=== PATIENT | female | born 1955 | race Hispanic/Latino ===

== ENCOUNTER → 2020-06-30 | Outpatient (CLI) | payer BC ==
[~2020-06-30] MED LIST: ASPI-1443 PO; BRIM15OS OS; BRINOS OS; CARV12.511 PO; CLON0.1T PO; GARL1000 PO; LATA7.5D OS; LEVO55OS OS; MAGN500C15 PO; METF500S7 PO; VALS1TAB80 PO
== END | disposition home or self-care (01) ==
LOC: SHCH 08:22
PROVIDERS: ATTEND Internal Medicine Cardiovascular Disease
DX: R55 Syncope and collapse (principal); I10 Essential (primary) hypertension; E11.9 Type 2 diabetes mellitus without complications
CPT/HCPCS: 93306; 93356

== ENCOUNTER 2020-07-04 15:35 | Inpatient (IN) | payer BC ==
[~2020-07-04] VITALS: Ht 160 cm; Wt 91.6 kg
[2020-07-04 16:14] LABS: APPEARANCE,URINE Cloudy (CLEAR); BILIRUBIN,URINE Negative (NEGATIVE); COLOR,URINE Yellow (YELLOW); GLUCOSE, URINE (UA) 250 mg/dL (NEGATIVE); KETONES,URINE Negative (NEGATIVE); LEUKOCYTE ESTERASE ,URINE Trace (NEGATIVE); NITRATE,URINE Negative (NEGATIVE); OCCULT BLOOD,URINE Moderate (NEGATIVE); PROTEIN,URINE POS 1+ mg/dL (NEGATIVE); UROBILINOGEN,URINE 0.2 mg/dL (0.2-1.0)
[2020-07-04 16:28] LABS: BACTERIA,URINE Few /HPF (None Seen); MUCUS,URINE Few LPF (None Seen); SQUAMOUS EPITHELIAL CELL,UR Few /HPF (0-2)
[2020-07-04] MEDS ORDERED: NICARDIPINE HCL 50 MG in SODIUM CHLORIDE 0.9% 230 ML IV SCH (16:30)
[2020-07-04] MEDS ORDERED: PHARMACY COMMUNICATION MISC SCH (16:30)
[2020-07-04] MEDS ORDERED: LOSARTAN 100 MG TABLET PO SCH (16:31)
[2020-07-04 16:32] LABS: BASOPHILS % (AUTO) 0.5 % (0.0-5.0); EOSINOPHILS % (AUTO) 0.8 % (0.0-8.0); HEMATOCRIT 42.5 % (36-48); LYMPHOCYTES % (AUTO) 28.6 % (21.0-51.0); MEAN CORPUSCULAR HEMOGLOBIN 31.6 pg (27.0-33.0); MEAN CORPUSCULAR HGB CONC 35.5 g/dL (32.0-36.0); MEAN CORPUSCULAR VOLUME 88.9 fL (79-99); MONOCYTES % (AUTO) 3.8 % (3.0-13.0); NEUTROPHILS % (AUTO) 65.8 % (40.0-77.0); PLATELET COUNT (AUTO) 319 K/uL (130-400); RED BLOOD CELL COUNT(AUTO) 4.78 MIL/uL (4.00-5.50); RED CELL DISTRIBUTION WIDTH 12.1 % (11.0-15.5); WHITE BLOOD COUNT (AUTO) 12.9 K/uL (4.8-10.8)
[2020-07-04] MEDS ORDERED: HYDROCHLOROTHIAZIDE 25 MG TABLET PO SCH (16:32)
[2020-07-04] MEDS ORDERED: NICARDIPINE HCL 25 MG/10 ML ML IV ONE ×2 (16:34→16:44)
[2020-07-04 16:44] LABS: CREATININE 0.9 mg/dL (0.5-1.5); POTASSIUM 3.1 mmol/L (3.5-5.1)
[2020-07-04 16:46] LABS: INR 1.03 (0.85-1.15); PROTHROMBIN TIME 11.2 SEC (9.6-11.6)
[2020-07-04 16:47] LABS: PARTIAL THROMBOPLASTIN TIME 25.2 SEC (26.3-35.5)
[2020-07-04 16:51] LABS: ALBUMIN 3.8 g/dL (3.5-5.0); BILIRUBIN,TOTAL 0.9 mg/dL (0.2-1.0); TOTAL PROTEIN, SERUM 8.5 g/dL (6.0-8.3)
[2020-07-04 16:54] LABS: HEMOGLOBIN A1C 8.2 % (4.0-6.0)
[2020-07-04 17:00] LABS: THYROID STIMULATING HORMONE 1.24 uIU/mL (0.36-3.74)
[2020-07-04 17:01] LABS: AMPHET/METH SCREEN,URINE NEGATIVE (NEGATIVE); BARBITURATE SCREEN, URINE NEGATIVE (NEGATIVE); BENZODIAZEPINES SCREEN,URINE NEGATIVE (NEGATIVE); CANNABINOID SCREEN,URINE NEGATIVE (NEGATIVE); COCAINE SCREEN,URINE NEGATIVE (NEGATIVE); OPIATE SCREEN,URINE NEGATIVE (NEGATIVE); PHENCYCLIDINE SCREEN,URINE NEGATIVE (NEGATIVE)
[2020-07-04 17:01] LABS: B-TYPE NATRIURETIC PEPTIDE 76 pg/mL (0-100)
[2020-07-04] MEDS ORDERED: POTASSIUM CHLORIDE 20 MEQ ERTAB PO PRN (17:30)
[2020-07-04] MEDS ORDERED: POTASSIUM CHLORIDE 20MEQ/100ML 100 ML IV PRN (17:30)
[2020-07-04 18:34] VITALS: BP 185/101
[2020-07-04] MEDS ORDERED: BRIM15OS OS (18:43)
[2020-07-04] MEDS ORDERED: BRINOS OS (18:43)
[2020-07-04] MEDS ORDERED: LEVO55OS OS (18:43)
[2020-07-04] MEDS ORDERED: LATA7.5D OS (18:43)
[2020-07-04] MEDS ORDERED: CLON0.1T PO (18:49)
[2020-07-04] MEDS ORDERED: MAGN500C15 PO (18:49)
[2020-07-04] MEDS ORDERED: METF500S7 PO (18:49)
[2020-07-04] MEDS ORDERED: ASPI-1443 PO (18:49)
[2020-07-04] MEDS ORDERED: VALS1TAB80 PO (18:49)
[2020-07-04] MEDS ORDERED: CARV12.511 PO (18:49)
[2020-07-04] MEDS ORDERED: GARL1000 PO (18:49)
[2020-07-04 20:15] VITALS: BP 139/71
[2020-07-04 21:00] VITALS: BP 143/72
[2020-07-04] MEDS: LEVOBUNOLOL HCL OS SCH (21:00)
[2020-07-04] MEDS ORDERED: LEVOBUNOLOL HCL OS SCH (21:00)
[2020-07-04] MEDS: LATANOPROST 2.5 ML DROPS OS SCH (21:00)
[2020-07-04] MEDS: BRIMONIDINE TARTRATE 0.2% 5 ML BOTTLE OS SCH (21:00)
[2020-07-04] MEDS ORDERED: BRIMONIDINE TARTRATE OS SCH (21:00)
[2020-07-04] MEDS ORDERED: NON-FORMULARY MEDICATION 1 EACH (Latanoprost/Pf (Latanoprost 0.005% Eye Drop) 1 DROP) OS SCH (21:00)
[2020-07-04] MEDS: POTASSIUM CHLORIDE 10% ELIXIR 20 MEQ/15 ML UDCUP PO PRN ×2 (21:20→23:00)
[2020-07-04] MEDS: FAMOTIDINE 20MG TAB 20 MG TAB PO SCH (21:20)
[2020-07-04] MEDS: CARVEDILOL 12.5 MG TABLET PO SCH (21:20)
[2020-07-04 22:00] VITALS: BP 128/74
[2020-07-05] VITALS (21 sets, daily range): BP systolic 117–180; BP diastolic 51–95
[2020-07-05] MEDS: POTASSIUM CHLORIDE 10% ELIXIR 20 MEQ/15 ML UDCUP PO PRN
[2020-07-05 05:41] LABS: BASOPHILS % (AUTO) 0.5 % (0.0-5.0); EOSINOPHILS % (AUTO) 1.2 % (0.0-8.0); HEMATOCRIT 41.9 % (36-48); LYMPHOCYTES % (AUTO) 33.6 % (21.0-51.0); MEAN CORPUSCULAR HEMOGLOBIN 30.5 pg (27.0-33.0); MEAN CORPUSCULAR HGB CONC 34.1 g/dL (32.0-36.0); MEAN CORPUSCULAR VOLUME 89.3 fL (79-99); NEUTROPHILS % (AUTO) 58.4 % (40.0-77.0); PLATELET COUNT (AUTO) 295 K/uL (130-400); RED BLOOD CELL COUNT(AUTO) 4.69 MIL/uL (4.00-5.50); RED CELL DISTRIBUTION WIDTH 12.4 % (11.0-15.5); WHITE BLOOD COUNT (AUTO) 10.9 K/uL (4.8-10.8)
[2020-07-05 05:57] LABS: CREATININE 0.7 mg/dL (0.5-1.5); MAGNESIUM 1.8 mg/dL (1.80-2.40); POTASSIUM 3.3 mmol/L (3.5-5.1)
[2020-07-05] MEDS: INSULIN HUMULIN R 100 UNIT/ML 3ML SQ SCH ×4 (07:30→22:12)
[2020-07-05] MEDS: CARVEDILOL 12.5 MG TABLET PO SCH ×2 (08:50→20:19)
[2020-07-05] MEDS: LOSARTAN 100 MG TABLET PO SCH (08:52)
[2020-07-05] MEDS: FAMOTIDINE 20MG TAB 20 MG TAB PO SCH ×2 (08:52→22:11)
[2020-07-05] MEDS: LEVOBUNOLOL HCL OS SCH ×2 (08:53→21:00)
[2020-07-05] MEDS: ASPIRIN 81 MG EC TAB PO SCH (08:54)
[2020-07-05] MEDS ORDERED: MAGNESIUM OXIDE 500 MG PO SCH (09:00)
[2020-07-05] MEDS ORDERED: HYDROCHLOROTHIAZIDE 25 MG TABLET PO SCH (09:00)
[2020-07-05] MEDS ORDERED: NON-FORMULARY MEDICATION 1 EACH (Magnesium Oxide (Magnesium) 500 MG) PO SCH (09:00)
[2020-07-05] MEDS ORDERED: POTASSIUM CHLORIDE 20 MEQ ERTAB PO SCH (09:30)
[2020-07-05] MEDS: MAGNESIUM OXIDE 400 MG TABLET PO SCH (09:39)
[2020-07-05] MEDS: BRIMONIDINE TARTRATE 0.2% 5 ML BOTTLE OS SCH ×2 (09:56→21:00)
[2020-07-05] MEDS ORDERED: SODIUM BICARB 50MEQ 50ML VIAL 50 ML ONE (17:05)
[2020-07-05] MEDS ORDERED: IOHEXOL 350 MG/ML 100ML INFUS..BTL IV ONE (17:06)
[2020-07-05] MEDS ORDERED: FENTANYL CITRATE PF 50 MCG/1 ML 2ML VIAL ONE (17:06)
[2020-07-05] MEDS ORDERED: NITROGLYCERIN 2 MG/VIAL VIAL IV ONE (17:06)
[2020-07-05] MEDS ORDERED: LIDOCAINE HCL 2% 20ML ONE (17:06)
[2020-07-05] MEDS ORDERED: BIVALIRUDIN 250 MG/VIAL IV ONE (17:06)
[2020-07-05] MEDS ORDERED: MIDAZOLAM HCL 1 MG/ML 2ML VIAL ONE (17:06)
[2020-07-05] MEDS ORDERED: LABETALOL HCL 5 MG/ML 20ML VIAL IV ONE (17:49)
[2020-07-05] MEDS ORDERED: IOHEXOL-350 50ML VIAL IV ONE (17:54)
[2020-07-05] MEDS ORDERED: ENALAPRILAT DIHYDRATE 1.25 MG/ML 2ML VIAL IVP ONE ×2 (17:58→18:09)
[2020-07-05] MEDS ORDERED: SODIUM CHLORIDE 0.9% 1000ML 1,000 ML IV SCH (18:15)
[2020-07-05] MEDS ORDERED: AMLODIPINE BESYLATE 5 MG TAB PO SCH (19:45)
[2020-07-05] MEDS: LATANOPROST 2.5 ML DROPS OS SCH (21:00)
[2020-07-06] VITALS (24 sets, daily range): BP systolic 94–163; BP diastolic 45–90
[2020-07-06 04:25] LABS: HEMATOCRIT 39.4 % (36-48); MEAN CORPUSCULAR HEMOGLOBIN 30.2 pg (27.0-33.0); MEAN CORPUSCULAR VOLUME 91.4 fL (79-99); RED BLOOD CELL COUNT(AUTO) 4.31 MIL/uL (4.00-5.50); RED CELL DISTRIBUTION WIDTH 12.4 % (11.0-15.5); WHITE BLOOD COUNT (AUTO) 10.8 K/uL (4.8-10.8)
[2020-07-06 04:36] LABS: CREATININE 0.8 mg/dL (0.5-1.5); POTASSIUM 3.7 mmol/L (3.5-5.1)
[2020-07-06] MEDS ORDERED: METOPROLOL TARTRATE 1 MG/ML 5ML VIAL IV PRN (04:45)
[2020-07-06] MEDS: AMLODIPINE BESYLATE 5 MG TAB PO SCH ×2 (07:28→09:06)
[2020-07-06] MEDS: FAMOTIDINE 20MG TAB 20 MG TAB PO SCH ×2 (09:06→21:03)
[2020-07-06] MEDS: HYDROCHLOROTHIAZIDE 25 MG TABLET PO SCH (09:06)
[2020-07-06] MEDS: LOSARTAN 100 MG TABLET PO SCH (09:06)
[2020-07-06] MEDS: ASPIRIN 81 MG EC TAB PO SCH (09:07)
[2020-07-06] MEDS: LEVOBUNOLOL HCL OS SCH ×2 (09:10→21:04)
[2020-07-06] MEDS: BRIMONIDINE TARTRATE 0.2% 5 ML BOTTLE OS SCH ×2 (09:10→21:04)
[2020-07-06] MEDS: INSULIN HUMULIN R 100 UNIT/ML 3ML SQ SCH ×4 (09:28→20:58)
[2020-07-06] MEDS: MAGNESIUM OXIDE 400 MG TABLET PO SCH (10:31)
[2020-07-06] MEDS: AMILORIDE HCL 5 MG TABLET PO SCH (10:33)
[2020-07-06] MEDS: LATANOPROST 2.5 ML DROPS OS SCH (21:03)
[2020-07-07] VITALS (23 sets, daily range): BP systolic 111–184; BP diastolic 56–96
[2020-07-07 06:03] LABS: BASOPHILS % (AUTO) 0.3 % (0.0-5.0); EOSINOPHILS % (AUTO) 2.3 % (0.0-8.0); HEMATOCRIT 39.6 % (36-48); LYMPHOCYTES % (AUTO) 31.5 % (21.0-51.0); MEAN CORPUSCULAR HEMOGLOBIN 30.8 pg (27.0-33.0); MEAN CORPUSCULAR HGB CONC 34.1 g/dL (32.0-36.0); MEAN CORPUSCULAR VOLUME 90.4 fL (79-99); MONOCYTES % (AUTO) 6.7 % (3.0-13.0); NEUTROPHILS % (AUTO) 58.9 % (40.0-77.0); PLATELET COUNT (AUTO) 255 K/uL (130-400); RED BLOOD CELL COUNT(AUTO) 4.38 MIL/uL (4.00-5.50); RED CELL DISTRIBUTION WIDTH 12.4 % (11.0-15.5); WHITE BLOOD COUNT (AUTO) 11.5 K/uL (4.8-10.8)
[2020-07-07 06:13] LABS: POTASSIUM 3.3 mmol/L (3.5-5.1)
[2020-07-07] MEDS: INSULIN HUMULIN R 100 UNIT/ML 3ML SQ SCH ×4 (07:20→20:29)
[2020-07-07] MEDS ORDERED: POTASSIUM CHLORIDE 20 MEQ ERTAB PO SCH (08:30)
[2020-07-07] MEDS: ASPIRIN 81 MG EC TAB PO SCH (08:43)
[2020-07-07] MEDS: FAMOTIDINE 20MG TAB 20 MG TAB PO SCH ×2 (08:43→20:28)
[2020-07-07] MEDS: HYDROCHLOROTHIAZIDE 25 MG TABLET PO SCH (08:43)
[2020-07-07] MEDS: LOSARTAN 100 MG TABLET PO SCH (08:43)
[2020-07-07] MEDS: AMLODIPINE BESYLATE 5 MG TAB PO SCH (08:43)
[2020-07-07] MEDS: AMILORIDE HCL 5 MG TABLET PO SCH (08:43)
[2020-07-07] MEDS: BRIMONIDINE TARTRATE 0.2% 5 ML BOTTLE OS SCH ×2 (08:44→20:28)
[2020-07-07] MEDS ORDERED: CARVEDILOL 12.5 MG TABLET PO SCH ×2 (09:00)
[2020-07-07] MEDS ORDERED: CARVEDILOL 12.5 MG TABLET PO ONE (09:10)
[2020-07-07] MEDS: LEVOBUNOLOL HCL OS SCH ×2 (09:12→20:28)
[2020-07-07] MEDS: MAGNESIUM OXIDE 400 MG TABLET PO SCH (09:14)
[2020-07-07] MEDS ORDERED: AMLODIPINE BESYLATE 5 MG TAB PO SCH (09:30)
[2020-07-07] MEDS ORDERED: AMLODIPINE BESYLATE 5 MG TAB ONE (09:31)
[2020-07-07] MEDS: LATANOPROST 2.5 ML DROPS OS SCH (20:28)
[2020-07-08] VITALS (15 sets, daily range): BP systolic 120–158; BP diastolic 45–75
[2020-07-08 06:04] LABS: BASOPHILS % (AUTO) 0.3 % (0.0-5.0); EOSINOPHILS % (AUTO) 2.7 % (0.0-8.0); LYMPHOCYTES % (AUTO) 33.1 % (21.0-51.0); MEAN CORPUSCULAR HEMOGLOBIN 30.4 pg (27.0-33.0); MEAN CORPUSCULAR HGB CONC 33.2 g/dL (32.0-36.0); MEAN CORPUSCULAR VOLUME 91.7 fL (79-99); NEUTROPHILS % (AUTO) 56.5 % (40.0-77.0); PLATELET COUNT (AUTO) 269 K/uL (130-400); RED BLOOD CELL COUNT(AUTO) 4.47 MIL/uL (4.00-5.50); RED CELL DISTRIBUTION WIDTH 12.4 % (11.0-15.5); WHITE BLOOD COUNT (AUTO) 10.7 K/uL (4.8-10.8)
[2020-07-08 06:15] LABS: CREATININE 0.9 mg/dL (0.5-1.5); MAGNESIUM 1.9 mg/dL (1.80-2.40); POTASSIUM 3.9 mmol/L (3.5-5.1)
[2020-07-08] MEDS ORDERED: LOSARTAN 100 MG TABLET PO SCH (07:00)
[2020-07-08] MEDS ORDERED: AMLODIPINE BESYLATE 5 MG TAB PO SCH (07:00)
[2020-07-08] MEDS ORDERED: HYDROCHLOROTHIAZIDE 25 MG TABLET PO SCH (07:00)
[2020-07-08] MEDS: INSULIN HUMULIN R 100 UNIT/ML 3ML SQ SCH ×2 (07:30→12:18)
[2020-07-08] MEDS ORDERED: AMILORIDE HCL 5 MG TABLET PO SCH (09:00)
[2020-07-08] MEDS: BRIMONIDINE TARTRATE 0.2% 5 ML BOTTLE OS SCH (09:07)
[2020-07-08] MEDS: LEVOBUNOLOL HCL OS SCH (09:07)
[2020-07-08] MEDS: ASPIRIN 81 MG EC TAB PO SCH (09:13)
[2020-07-08] MEDS: MAGNESIUM OXIDE 400 MG TABLET PO SCH (09:13)
[2020-07-08] MEDS: FAMOTIDINE 20MG TAB 20 MG TAB PO SCH (09:14)
[2020-07-08] MEDS ORDERED: HYDR25TA PO (13:53)
[2020-07-08] MEDS ORDERED: AMLO-258 PO (13:53)
[2020-07-08] MEDS ORDERED: LOSA100T2 PO (13:53)
[2020-07-08] MEDS ORDERED: AMIL5TAB8 PO (13:53)
== END 2020-07-08 17:18 | disposition home or self-care (01) | DRG 287 ==
LOC: EDH 15:35 → EDHIP 15:36 → 2DH 18:15
PROVIDERS: ADMIT Internal Medicine; ATTEND Internal Medicine
PROC: 4A023N7 Measurement of Cardiac Sampling and Pressure, Left Heart, Percutaneous Approach (ICD-10-PCS; principal; 2020-07-05)
PROC: B2111ZZ Fluoroscopy of Multiple Coronary Arteries using Low Osmolar Contrast (ICD-10-PCS; 2020-07-05)
PROC: B2151ZZ Fluoroscopy of Left Heart using Low Osmolar Contrast (ICD-10-PCS; 2020-07-05)
PROC: B4181ZZ Fluoroscopy of Bilateral Renal Arteries using Low Osmolar Contrast (ICD-10-PCS; 2020-07-05)
DX: I16.9 Hypertensive crisis, unspecified (principal); I10 Essential (primary) hypertension; E11.65 Type 2 diabetes mellitus with hyperglycemia; E87.5 Hyperkalemia; G47.33 Obstructive sleep apnea (adult) (pediatric); Z88.0 Allergy status to penicillin; Z88.2 Allergy status to sulfonamides; Z90.710 Acquired absence of both cervix and uterus; E66.9 Obesity, unspecified; Z68.35 Body mass index [BMI] 35.0-35.9, adult
CPT/HCPCS: 36252; 36415; 70450; 71045; 76770; 80048; 80053; 80061; 80305; 81001; 82948; 83036; 83735; 83880; 84443; 84484; 85025; 85027; 85610; 85730; 93005; 93458; 99156; 99157; C1760; C1894; J0583; J1644; J1815; J2250; J3010; J3490; J7030; J7050; Q9967

== ENCOUNTER → 2020-10-02 | Outpatient (CLI) | payer BC ==
[~2020-10-02] MED LIST changes: +AMIL5TAB8 PO; +AMLO-258 PO; -CARV12.511 PO; -CLON0.1T PO; +HYDR25TA PO; +LOSA100T2 PO; -VALS1TAB80 PO
== END | disposition home or self-care (01) ==
LOC: SLP 20:32
PROVIDERS: ATTEND Family Medicine
DX: G47.33 Obstructive sleep apnea (adult) (pediatric) (principal); I10 Essential (primary) hypertension; E11.9 Type 2 diabetes mellitus without complications
CPT/HCPCS: 95810

== ENCOUNTER → 2020-12-10 | Outpatient (CLI) | payer OTHER | END | disposition home or self-care (01) | LOC: SLP 20:24 | PROVIDERS: ATTEND Family Medicine | DX: G47.33 Obstructive sleep apnea (adult) (pediatric) (principal); I10 Essential (primary) hypertension; E11.9 Type 2 diabetes mellitus without complications | CPT/HCPCS: 95811 ==